=== PATIENT | female | born 1970 | race Caucasian/White ===

== ENCOUNTER 2018-11-10 11:39 | Emergency (ER) | payer OTHER ==
[~2018-11-10] VITALS: Ht 162.6 cm; Wt 63.5 kg
[2018-11-10] MEDS ORDERED: IV NORMAL SALINE 1000ML BAG 1,000 ML IV ONE (12:15)
--- NOTE | 2018-11-10 12:22 | EKG ---
[facility] [address] [place] [address] Test Date: 2018-11-10 Test Time: 11:47:17 Pat Name: KRZYSZTOF DOUGLAS Department: Room: Gender: F Rolled [employer] Lacer: : 1970 Requested By: PACO COBB Order Number: [id number] Reading MD: Measurements Intervals [place] Rate: 67 P: 54 NH: 162 QRS: 18 QRSD: 78 T: 23 QT: 398 QTc: 423 Interpretive Statements SINUS RHYTHM NO SPECIFIC ECG ABNORMALITIES RI6.01 Unconfirmed report No previous ECG available for comparison
[2018-11-10 12:32] LABS: BILIRUBIN,URINE NEGATIVE (NEG); CLARITY,URINE CLEAR; COLOR,URINE YELLOW; NITRITE,URINE NEGATIVE (NEG); PROTEIN,URINE NEGATIVE (NEG-TRACE)
[2018-11-10 12:32] LABS: CALCIUM 9.1 mg/dL (8.5-10.1); CREATININE 0.8 mg/dL (0.6-1.0); GFR 76.6
[2018-11-10 12:33] LABS: BASO % 1 % (0-3); EOS % 0 % (0-3); HEMATOCRIT 37.5 % (36.0-47.0); HEMOGLOBIN 12.9 g/dL (12.0-15.5); LYMPH # 0.9 x10^3/uL (1.0-4.8); LYMPH % 29 % (24-48); MEAN CORPUSCULAR HEMOGLOBIN 31 pg (25-35); MEAN CORPUSCULAR HGB CONC 34 g/dL (31-37); MEAN CORPUSCULAR VOLUME 91 fL (79-100); MONO # 0.4 x10^3/uL (0.0-1.1); MONO % 13 % (0-9); NEUT # 1.8 x10^3/uL (1.8-7.7); NEUT % 58 % (31-73); PLATELET COUNT 241 x10^3/uL (140-400); RED BLOOD COUNT 4.11 x10^6/uL (3.50-5.40); WHITE BLOOD COUNT 3.2 x10^3/uL (4.0-11.0)
[2018-11-10 12:38] LABS: ALBUMIN 3.9 g/dL (3.4-5.0); ALBUMIN/GLOBULIN RATIO 1.2 (1.0-1.7); TOTAL BILIRUBIN 0.3 mg/dL (0.2-1.0); TOTAL PROTEIN 7.1 g/dL (6.4-8.2)
--- NOTE | 2018-11-10 12:39 | RAD ---
CHEST PA LATERAL History: Syncope Comparison: None. Findings: 2 views of the chest are submitted. There is no infiltrate, pneumothorax, or effusion. Pericardial cardiac silhouette is within normal limits in size. There is likely granuloma of the right lung base. Impression: 1. There is no radiographic evidence of acute cardiopulmonary disease. Electronically signed by: Armin Sterling MD (11/10/2018 12:36 PM) [id number]
[2018-11-10 13:08] LABS: BACTERIA,URINE 0 /HPF (0-FEW); RBC,URINE 0 /HPF (0-2); SQUAMOUS EPITHELIAL CELL,UR FEW /LPF; WBC,URINE 0 /HPF (0-4)
--- NOTE | 2018-11-10 13:27 | PHYS DOC ---
Past Medical History Past Medical History: Depression, Hypertension Additional Past Medical Histor: TREMORS Past Surgical History: Tonsillectomy Additional Past Surgical Histo: THYROIDECTOMY, NECK FUSION Alcohol Use: Occasionally Drug Use: None Adult General Chief Complaint Chief Complaint: DIZZY/LIGHT HEADED HPI HPI Patient is a 48 year old female that presents to the ER after getting up to go to the shower around 11:00 and feeling lightheaded and dizzy and felt like she was about to pass out. The patient denies any nausea or chest pain. She says that she had not eaten or drank all day. Denies any pain at this time. Review of Systems Review of Systems Constitutional: Denies fever or chills. Reports dizziness. Eyes: Denies change in visual acuity, redness, or eye pain [] HENT: Denies nasal congestion or sore throat [] Respiratory: Denies cough or shortness of breath [] Cardiovascular: No additional information not addressed in HPI [] GI: Denies abdominal pain, nausea, vomiting, bloody stools or diarrhea [] : Denies dysuria or hematuria [] Musculoskeletal: Denies back pain or joint pain [] Integument: Denies rash or skin lesions [] Neurologic: Denies headache, focal weakness or sensory changes [] Endocrine: Denies polyuria or polydipsia [] Complete systems were reviewed and found to be within normal limits, except as documented in this note. Current Medications Current Medications Current Medications Medications (Trade) Dose Ordered Sig/Cornelio Start Time Stop Time Status Last Admin Dose Admin Meclizine HCl (Antivert) 25 mg 1X ONCE 11/10/18 13:45 11/10/18 13:50 DC 11/10/18 13:55 25 MG Sodium Chloride 1,000 ml @ 1,000 mls/hr 1X ONCE 11/10/18 12:15 11/10/18 13:14 DC 11/10/18 12:38 1,000 MLS/HR Allergies Allergies Allergies Coded Allergies Type Severity Reaction Last Updated Verified No Known Drug Allergies 11/10/18 No Physical Exam Physical Exam Constitutional: Well developed, well nourished, no acute distress, non-toxic appearance. [] HENT: Normocephalic, atraumatic, bilateral external ears normal, oropharynx moist, no oral exudates, nose normal. [] Eyes: PERRLA, EOMI, conjunctiva normal, no discharge. [] Neck: Normal range of motion, no tenderness, supple, no stridor. [] Cardiovascular:Heart rate regular rhythm, no murmur [] Lungs & Thorax: Bilateral breath sounds clear to auscultation [] Abdomen: Bowel sounds normal, soft, no tenderness, no masses, no pulsatile masses. [] Skin: Warm, dry, no erythema, no rash. [] Back: No tenderness, no CVA tenderness. [] Extremities: No tenderness, no cyanosis, no clubbing, ROM intact, no edema. [] Neurologic: Alert and oriented X 3, normal motor function, normal sensory function, no focal deficits noted. [] Psychologic: Affect normal, judgement normal, mood normal. [] Current Patient Data Vital Signs Vital Signs Date Time Temp Pulse Resp B/P (MAP) Pulse Ox O2 Delivery O2 Flow Rate FiO2 11/10/18 11:42 98.3 87 18 175/108 (130) 97 Room Air 98.3 Lab Values Laboratory Tests Test 11/10/18 11:54 11/10/18 12:03 11/10/18 12:10 White Blood Count 3.2 x10^3/uL (4.0-11.0) L Red Blood Count 4.11 x10^6/uL (3.50-5.40) Hemoglobin 12.9 g/dL (12.0-15.5) Hematocrit 37.5 % (36.0-47.0) Mean Corpuscular Volume 91 fL (79-100) Mean Corpuscular Hemoglobin 31 pg (25-35) Mean Corpuscular Hemoglobin Concent 34 g/dL (31-37) Red Cell Distribution Width 13.0 % (11.5-14.5) Platelet Count 241 x10^3/uL (140-400) Neutrophils (%) (Auto) 58 % (31-73) Lymphocytes (%) (Auto) 29 % (24-48) Monocytes (%) (Auto) 13 % (0-9) H Eosinophils (%) (Auto) 0 % (0-3) Basophils (%) (Auto) 1 % (0-3) Neutrophils # (Auto) 1.8 x10^3/uL (1.8-7.7) Lymphocytes # (Auto) 0.9 x10^3/uL (1.0-4.8) L Monocytes # (Auto) 0.4 x10^3/uL (0.0-1.1) Eosinophils # (Auto) 0.0 x10^3/uL (0.0-0.7) Basophils # (Auto) 0.0 x10^3/uL (0.0-0.2) Sodium Level 143 mmol/L (136-145) Potassium Level 4.0 mmol/L (3.5-5.1) Chloride Level 107 mmol/L (98-107) Carbon Dioxide Level 29 mmol/L (21-32) Anion Gap 7 (6-14) Blood Urea Nitrogen 13 mg/dL (7-20) Creatinine 0.8 mg/dL (0.6-1.0) Estimated GFR (Cockcroft-Gault) 76.6 BUN/Creatinine Ratio 16 (6-20) Glucose Level 97 mg/dL (70-99) Calcium Level 9.1 mg/dL (8.5-10.1) Total Bilirubin 0.3 mg/dL (0.2-1.0) Aspartate Amino Transferase (AST) 17 U/L (15-37) Alanine Aminotransferase (ALT) 20 U/L (14-59) Alkaline Phosphatase 73 U/L (46-116) Troponin I Quantitative < 0.017 ng/mL (0.000-0.055) Total Protein 7.1 g/dL (6.4-8.2) Albumin 3.9 g/dL (3.4-5.0) Albumin/Globulin Ratio 1.2 (1.0-1.7) Urine Collection Type Unknown Urine Color Yellow Urine Clarity Clear Urine pH 7.0 Urine Specific [place] 1.015 Urine Protein Negative mg/dL (NEG-TRACE) Urine Glucose (UA) Negative mg/dL (NEG) Urine Ketones (Stick) Negative mg/dL (NEG) Urine Blood Negative (NEG) Urine Nitrite Negative (NEG) Urine Bilirubin Negative (NEG) Urine Urobilinogen Dipstick 1.0 mg/dL (0.2 mg/dL) Urine Leukocyte Esterase Negative (NEG) Urine RBC 0 /HPF (0-2) Urine WBC 0 /HPF (0-4) Urine Squamous Epithelial Cells Few /LPF Urine Bacteria 0 /HPF (0-FEW) POC Urine HCG, Qualitative Hcg negative (Negative) Laboratory Tests 11/10/18 11:54 Laboratory Tests 11/10/18 11:54 EKG EKG EKG interpreted by Dr. Andrade Normal sinus with rate of 67. No STEMI.[] Radiology/Procedures Radiology/Procedures [][facility] [address] [place] [address] IMAGING REPORT Signed PATIENT: KRZYSZTOF DOUGLAS ACCOUNT: [id number] : 1970 LOCATION: ER AGE: 48 SEX: F EXAM STATUS: REG ER ORD. PHYSICIAN: PACO COBB APRN REASON: syncope PROCEDURE: CHEST PA & LATERAL CHEST PA LATERAL History: Syncope Comparison: None. Findings: 2 views of the chest are submitted. There is no infiltrate, pneumothorax, or effusion. Pericardial cardiac silhouette is within normal limits in size. There is likely granuloma of the right lung base. Impression: 1. There is no radiographic evidence of acute cardiopulmonary disease. Electronically signed by: Vincent Riddle MD (11/10/2018 12:36 PM) [id number] DICTATED and SIGNED BY: VINCENT RIDDLE MD DATE: 11/10/18 1236 Course & Med Decision Making Course & Med Decision Making Pertinent Labs and Imaging studies reviewed. (See chart for details) Will get EKG, labs, and chest x-ray. Labs, EKG, and imaging is negative. Gave patient a liter of fluids and she states that she has improved. Will have her follow up with primary care doctor for further workup. Went to discharge patient and she was having mild balance issues while walking to the bathroom. Will give Meclizine and reevaluate in 30 minutes. The meclizine improved the dizziness. Will d/c home with a script for meclizine Dragon Disclaimer Dragon Disclaimer This electronic medical record was generated, in whole or in part, using a voice recognition dictation system. Departure Departure Impression: Primary Impression: Syncope, near Additional Impression: Vertigo Disposition: HOME, SELF-CARE Condition: STABLE Referrals: UNKNOWN PCP NAME (PCP) Patient Instructions: Syncope Additional Instructions: Thank you for visiting [facility]. We appreciate you trusting us with your care. If any additional problems come up don't hesitate to return to visit us. Please follow up with your primary care provider so they can plan additional care if needed and know about the problem that you had. If symptoms worsen come back to the Emergency Department. Any concerning symptoms that start such as chest pain, shortness of air, weakness or numbness on one side of the body, running high fevers or any other concerning symptoms return to the ER. Scripts Meclizine Hcl (MECLIZINE HCL) 25 Mg Tablet 1 TAB PO PRN TID PRN for DIZZINESS, #30 TAB Prov: PACO COBB APRN 11/10/18 Problem Qualifiers PACO COBB APRN Nov 10, 2018 13:27
[2018-11-10] MEDS ORDERED: MECLIZINE HCL 12.5 MG TABLET. PO ONE (13:45)
[2018-11-10] MEDS ORDERED: MECL25TA3 PO (14:30)
[2018-11-10 14:40] VITALS: BP 156/114
== END 2018-11-10 14:45 | disposition home or self-care (01) ==
LOC: ER 11:39
DX: R55 Syncope and collapse (principal); R42 Dizziness and giddiness; F32.9 Major depressive disorder, single episode, unspecified; I10 Essential (primary) hypertension; E89.0 Postprocedural hypothyroidism; Z90.89 Acquired absence of other organs
CPT/HCPCS: 36415; 71046; 80053; 81001; 81025; 84484; 85025; 93005; 96360; 99285; J7030; J8597